=== PATIENT | male | born 1990 | race Caucasian/White ===

== ENCOUNTER 2016-12-28 08:51 | Emergency (ER) | payer BC, OTHER ==
[2016-12-28 08:59] VITALS: BP 152/94; PULSE 93; TEMP 98; BMI 31.0
--- NOTE | 2016-12-28 09:04 | PDOC ---
History of Present Illness - General Chief Complaint: Cold Symptoms Stated Complaint: COUGH, BODY ACHES, SORE THROAT Time Seen by Provider: 12/28/16 08:53 History Source: Patient Exam Limitations: No Limitations - History of Present Illness Initial Comments: 12/28/16 08:59 26 y/o male with allergies for 3 weeks. Hard to breath through nose. No cough, fever or chills. No N/V/d/C. No SOB or chest pain. taking Wendy OTC without relief. Severity: mild Associated Symptoms: denies: cough, fever/chills, rash Past History - Past Medical History Allergies/Adverse Reactions: Allergies Allergy/AdvReac Type Severity Reaction Status Date / Time No Known Allergies Allergy Verified 12/28/16 08:52 Home Medications: Ambulatory Orders Amoxicillin - [Amoxicillin 875mg Tablet -] 875 mg PO BID #20 tablet 12/28/16 Methylprednisolone [Medrol Dose Ezequiel] 4 mg PO ASDIR #21 tablet 12/28/16 - Psycho/Social/Smoking Cessation Hx Anxiety: No Suicidal Ideation: No Smoking History: Never smoked Hx Alcohol Use: No Substance Use Type: None Review of Systems - Review of Systems Able to Perform ROS?: Yes Is the patient limited Azeri proficient: No Constitutional: No: Chills, Fever Respiratory: No: Cough, Shortness of Breath, Wheezing Cardiac (ROS): No: Chest Pain, Palpitations ABD/GI: No: Nausea, Vomiting Integumentary: No: Erythema All Other Systems: Reviewed and Negative *Physical Exam - Physical Exam General Appearance: Yes: Nourished, Appropriately Dressed. No: Apparent Distress HEENT: positive: EOMI, Normal Voice, Pharynx Normal. negative: Normal ENT Inspection (sinus pressure b/l in front[place] maxillary sinuses b/l) Neck: positive: Trachea midline, Normal Thyroid, Supple Respiratory/Chest: positive: Lungs Clear, Normal Breath Sounds. negative: Chest Tender, Respiratory Distress Cardiovascular: positive: Regular Rhythm, Regular Rate, S1, S2. negative: JVD, Murmur Vascular Pulses: Femoral (R): 4+, Femoral (L): 4+, Carotid (R): 4+, Carotid (L) : 4+, Dorsalis-Pedis (R): 4+, Doralis-Pedis (L): 4+ Gastrointestinal/Abdominal: positive: Normal Bowel Sounds, Flat, Soft. negative : Pulsatile Mass Lymphatic: negative: Adenopathy, Tenderness, Other Musculoskeletal: positive: Normal Inspection. negative: CVA Tenderness Extremity: positive: Normal Capillary Refill, Normal Inspection, Normal Range of Motion Integumentary: positive: Normal Color, Dry, Warm Neurologic: positive: laboratory director II-XII NML intact, Fully Oriented, Alert, Normal Mood/ Affect, Normal Response, Motor Strength 12/22 ED Treatment Course - ADDITIONAL ORDERS Additional order review: 12/28/16 09:01 Pt appears to have a sinus infection as well as allergies Will place on Amoxicillin and Medrol dose pack Patient is in agreement with plan 12/28/16 09:22 *DC/Admit/Observation/Transfer Diagnosis at time of Disposition: Sinusitis Qualifiers: Sinusitis location: frontal Chronicity: acute Recurrence: not specified as recurrent Qualified Code(s): J01.10 - Acute frontal sinusitis, unspecified Seasonal allergies Qualifiers: Allergic rhinitis trigger: unspecified Qualified Code(s): J30.2 - Other seasonal allergic rhinitis - Discharge Dispostion Condition at time of disposition: Stable Admit: No - Patient Instructions Printed Discharge Instructions: DI for Sinusitis Additional Instructions: Fluids, rest Continue Wendy Medrol dose pack as directed Amoxicillin 875 mg 2x/day for 10 days If worsen return to ER
== END 2016-12-28 09:30 | disposition home or self-care (01) ==
LOC: FER 08:51
DX: J01.10 Acute frontal sinusitis, unspecified (principal); J30.2 Other seasonal allergic rhinitis
CPT/HCPCS: 99282-25